=== PATIENT | female | born 1955 | race Caucasian/White ===

== ENCOUNTER 2024-04-04 14:39 | Outpatient (CLI) | payer OTHER, MEDICARE, SELFPAY ==
--- NOTE | ~2024-04-04 | MR_ITS ---
EXAMINATION: MR knee RT wo con DATE: 04/04/2024 16:00 INDICATION: Acute right knee pain. TECHNIQUE: Magnetic resonance imaging (MRI) of the right knee was performed without intravenous contr ast. Sequences included axial PD-weighted FS FSE, coronal PD-weighted FSE and PD-weighted FS FSE, sag ittal PD-weighted FSE, and sagittal T2-weighted FS FSE. COMPARISON: None. FINDINGS: Medial compartment: Medial meniscus is normal. There is a shallow partial-thickness cartilage loss of tibial condyle with mild subchondral edema-like marrow signal intensity. There is partial-thickness cartilage loss of fe moral condyle, deep at the central articular surface with mild subchondral edema-like marrow signal i ntensity. Osteophytes are noted. Lateral compartment: There is a complex displaced bucket-handle tear of lateral meniscus. There is shallow partial-thickne ss cartilage loss of femoral condyle. There is cartilage surface irregularity of tibial condyle. Oste ophytes are noted. Patellofemoral compartment: There is full-thickness cartilage loss of patellar medial and lateral facets and median ridge with co rtical remodeling and moderate subchondral edema-like marrow signal intensity. There is full-thicknes s cartilage loss of medial trochlea with mild subchondral edema-like marrow signal intensity. Osteoph ytes are noted. Ligaments and tendons: The anterior and posterior cruciate ligaments are normal. There are changes of prior sprains of media l collateral ligament and fibular collateral ligament characterized by increased signal intensity pro ximally. There is mild patellar tendinopathy. Fluid: There is a moderate-sized knee joint effusion. There is trace fluid in a Patricio's cyst. There is mild prepatellar and superficial infrapatellar bursitis. IMPRESSION: 1. Severe chondrosis of patellofemoral compartment, moderate chondrosis of medial compartment, and mi ld chondrosis of lateral compartment. 2. Complex displaced bucket-handle tear of lateral meniscus. 3. Moderate-sized knee joint effusion. Reviewed, dictated and finalized at location A. Y [employer] IMPRESSION: 1. Severe chondrosis of patellofemoral compartment, moderate chondrosis of medi al compartment, and mild chondrosis of lateral compartment. 2. Complex displaced bucket-handle tear of lateral meniscus. 3. Moderate-sized knee joint effusion.
== END 2024-04-04 14:40 | disposition home or self-care (01) ==
PROVIDERS: PCP Orthopaedic Surgery
DX: M17.11 Unilateral primary osteoarthritis, right knee (principal); M22.41 Chondromalacia patellae, right knee; S83.271A Complex tear of lateral meniscus, current injury, right knee, initial encounter; X58.XXXA Exposure to other specified factors, initial encounter; M25.461 Effusion, right knee
CPT/HCPCS: 73721